=== PATIENT | female | born 1985 | race African-American/Black ===

== ENCOUNTER 2016-08-30 14:38 | Emergency (ER) | payer BC, MEDICAID | END 2016-08-30 16:42 | disposition home or self-care (01) | LOC: ER 14:38 | DX: S62.343A Nondisplaced fracture of base of third metacarpal bone, left hand, initial encounter for closed fracture (principal); W22.09XA Striking against other stationary object, initial encounter; Y93.89 Activity, other specified; Y92.9 Unspecified place or not applicable; S63.631A Sprain of interphalangeal joint of left index finger, initial encounter; S63.633A Sprain of interphalangeal joint of left middle finger, initial encounter; Z79.899 Other long term (current) drug therapy ==